=== PATIENT | male | born 1995 | race Caucasian/White ===

== ENCOUNTER → 2017-08-14 | Outpatient (CLI) | payer BC, OTHER ==
--- NOTE | 2017-08-14 16:25 | KCIC ---
MR of the right knee Indication: Right knee pain. History of ACL reconstruction. Medial hyperextension injury 6 days ago. Technique: Axial T1-weighted, T2 fat suppressed, sagittal proton density, coronal proton density and sagittal T2 fat suppressed images were obtained. Unfortunately, there was a power outage before completion, and the coronal T2 fat suppressed images were not obtained. The patient had to leave town and was unable to return promptly for this sequence. The available diagnostic information is interpreted. Findings: Medial meniscus: Mild ill-defined vertical T2 signal at the posterior margin of the posterior horn the medial meniscus at the meniscocapsular junction. This suggests either a peripheral longitudinal tear, versus meniscocapsular separation. Lateral meniscus: Intact. Anterior cruciate ligament: The anterior cruciate ligament is lax and undulating, with discontinuity at the femoral attachment, compatible with the proximal high-grade tear. There are Pivot shift bone injuries with small subchondral contusion or minimally impacted fracture at the lateral femoral condyle, and a small nondisplaced fracture at the posterior lateral tibial plateau. Small subchondral marrow contusion at the posterior medial tibial plateau. Posterior cruciate ligament: Intact Medial collateral ligament: Intact. Iliotibial band: Intact. Posterolateral structures: Fibular collateral ligament, biceps tendon and popliteus tendon are intact. Extensor mechanism: Intact. Fluid: Small joint effusion. Limited visualization of articular cartilage, particularly at the medial and lateral compartments, due to the lack of the coronal images. No evidence of acute defect. Bones: No additional bone abnormality. Soft tissue: Small Mullins's cyst. Mild strain or contusion within the proximal soleus muscle. Edema and contusion in the soft tissues posterior to the distal femur. Impression: 1. Anterior cruciate ligament tear with Pivot shift bone injuries. 2. Abnormal signal along the peripheral margin of the posterior horn the medial meniscus, compatible with a peripheral longitudinal tear versus meniscocapsular separation. Extension of this tear into the body segment can't be determined without the coronal T2-weighted images. 3. When back in town, the patient can return to obtain the missing sequence at no additional charge. This was discussed with the patient. Electronically signed by: Pepito Brito MD (08/14/2017 4:22 PM) [facility]
== END | disposition home or self-care (01) ==
LOC: KCIC MRI 10:14
PROVIDERS: ATTEND Orthopaedic Surgery
DX: S83.511A Sprain of anterior cruciate ligament of right knee, initial encounter (principal); X58.XXXA Exposure to other specified factors, initial encounter; Y93.89 Activity, other specified; Y92.89 Other specified places as the place of occurrence of the external cause; Y99.8 Other external cause status
CPT/HCPCS: 73721